=== PATIENT | female | born 1990 | race Caucasian/White ===

== ENCOUNTER 2016-07-09 15:55 | Emergency (ER) | payer MEDICARE ==
[2016-07-09 18:27] LABS: HEMOGLOBIN 13.4 gm/dl (12.3-15.3); RED BLOOD COUNT 4.3 M/UL (4.00-5.10); WHITE BLOOD COUNT 8.2 K/UL (4.5-11.0)
[2016-07-09 18:44] LABS: BUN/CREATININE RATIO 18 (0-10)
== END 2016-07-09 21:44 | disposition home or self-care (01) ==
LOC: ER1 15:55
PROVIDERS: Family Medicine
DX: S00.83XA Contusion of other part of head, initial encounter (principal); S20.219A Contusion of unspecified front wall of thorax, initial encounter; V43.62XA Car passenger injured in collision with other type car in traffic accident, initial encounter; F17.200 Nicotine dependence, unspecified, uncomplicated; Y92.410 Unspecified street and highway as the place of occurrence of the external cause
CPT/HCPCS: 36415; 70450; 71260; 80053; 84703; 85025; 99284; J7040; J7050; Q9962

== ENCOUNTER 2020-11-16 02:56 | Emergency (ER) | payer BC, OTHER ==
[~2020-11-16 02:56] MED LIST: BUPRENORPHIN-N1 EACH SL; COLACE 100MG C100 MG PO; IBUPROFEN600 MG PO
[2020-11-16] MEDS ORDERED: IBUPROFEN800 MG PO (04:43)
== END 2020-11-16 05:18 | disposition home or self-care (01) ==
LOC: ER1 02:56
DX: S93.401A Sprain of unspecified ligament of right ankle, initial encounter (principal); S93.601A Unspecified sprain of right foot, initial encounter; F17.200 Nicotine dependence, unspecified, uncomplicated; X50.1XXA Overexertion from prolonged static or awkward postures, initial encounter; Y92.009 Unspecified place in unspecified non-institutional (private) residence as the place of occurrence of the external cause
CPT/HCPCS: 73610; 73630; 99283

== ENCOUNTER 2021-05-11 22:29 | Emergency (ER) | payer OTHER, BC ==
[~2021-05-11 22:29] MED LIST changes: +IBUPROFEN800 MG PO
[2021-05-11] MEDS ORDERED: CYCLOBENZAPRINE10 MG PO (23:44)
== END 2021-05-11 23:55 | disposition home or self-care (01) ==
LOC: ER1 22:29
DX: S20.211A Contusion of right front wall of thorax, initial encounter (principal); S30.1XXA Contusion of abdominal wall, initial encounter; S00.81XA Abrasion of other part of head, initial encounter; F17.210 Nicotine dependence, cigarettes, uncomplicated; V43.52XA Car driver injured in collision with other type car in traffic accident, initial encounter; Y92.410 Unspecified street and highway as the place of occurrence of the external cause
CPT/HCPCS: 71260; 99285; Q9967

== ENCOUNTER → 2021-05-15 | Outpatient (CLI) | payer OTHER ==
[~2021-05-15] MED LIST changes: +CYCLOBENZAPRINE10 MG PO
== END ==
LOC: CT 14:13
DX: S39.91XA Unspecified injury of abdomen, initial encounter (principal); R10.13 Epigastric pain; K59.00 Constipation, unspecified; M25.512 Pain in left shoulder; V89.2XXA Person injured in unspecified motor-vehicle accident, traffic, initial encounter
CPT/HCPCS: 73030; 74170; Q9967